=== PATIENT | female | born 1970 | race Caucasian/White ===

== ENCOUNTER 2019-09-12 09:03 | Emergency (ER) | payer SELFPAY ==
[~2019-09-12] VITALS: Ht 177.8 cm; Wt 113.4 kg
[~2019-09-12 09:03] MED LIST: AMLODIPINE BESY10 MG PO; CETIRIZINE HCL10 MG PO; FLUTICASONE PRO16 GM NAS; FUROSEMIDE20 MG PO; HYDROCODON-ACE1 EA14 PO; LISINOPRIL40 MG PO; MECLIZINE HCL25 MG PO; METOPROLOL TART50 MG PO; ONDANSETRON HCL8 MG PO; SERTRALINE HCL50 MG PO; SPIRONOLACTONE25 MG PO; TRAMADOL HCL50 MG PO
== END 2019-09-12 10:09 | disposition home or self-care (01) ==
LOC: ED 09:03
DX: M77.12 Lateral epicondylitis, left elbow (principal); I10 Essential (primary) hypertension; Z79.899 Other long term (current) drug therapy
CPT/HCPCS: 99283

== ENCOUNTER 2024-12-20 10:26 | Emergency (ER) | payer SELFPAY ==
[~2024-12-20] VITALS: Ht 177.8 cm; Wt 114.9 kg
[2024-12-20] MEDS ORDERED: MORPHINE SULFATE 4 MG/ML VIAL IV ONE (12:45)
[2024-12-20] MEDS ORDERED: SODIUM CHLORIDE 0.9% 1,000 ML IV ONE (12:45)
[2024-12-20] MEDS ORDERED: ondansetron HCL 4 MG/2 ML VIAL IV ONE (12:45)
[2024-12-20 12:58] LABS: BASOPHILS 0.4 % (0.1-1.2); EOSINOPHILS 1.3 % (0.7-5.8); HEMATOCRIT 34.5 % (34.1-44.9); HEMOGLOBIN 11.8 g/dL (11.2-15.7); LYMPHOCYTES 18.1 % (19.3-51.7); MCHC 34.2 g/dL (32.2-35.5); MCV 81.9 fL (79.4-94.8); MONOCYTES 4.5 % (4.7-12.5); NEUTROPHILS 75.2 % (34.0-71.1); PLATELET COUNT 199 K/uL (182-369); RBC 4.21 M/uL (3.93-5.22)
[2024-12-20] MEDS ORDERED: SERTRALINE HCL100 MG PO (13:03)
[2024-12-20] MEDS ORDERED: METOPROLOL SUCC50 MG PO (13:03)
[2024-12-20] MEDS ORDERED: VENTOLIN HFA18 GM INH (13:04)
[2024-12-20 13:21] LABS: ALBUMIN 3.5 g/dL (3.4-5.0); ALBUMIN/GLOBULIN RATIO 0.85 (1.1-2.4); ANION GAP 11.4 (7-21); BILIRUBIN, TOTAL 0.6 mg/dL (0.2-1.0); BUN/CREATININE RATIO 28.57 (6.0-28.6); CALCIUM 9.3 mg/dL (8.5-10.1); CREATININE, SERUM 0.84 mg/dL (0.55-1.02); POTASSIUM 4.4 mmol/L (3.5-5.1); PROTEIN, TOTAL 7.6 g/dL (6.4-8.2)
[2024-12-20] MEDS ORDERED: AMOX TR-K CLV1 EAC1 PO (13:34)
[2024-12-20] MEDS ORDERED: ZITHROMAX250 MG PO (13:34)
[2024-12-20] MEDS ORDERED: AMOXICILLIN/CLAVULANATE K 875 MG TAB PO ONE (13:45)
[2024-12-20] MEDS ORDERED: AZITHROMYCIN 250 MG TAB PO ONE (13:45)
[2024-12-20 14:22] VITALS: BP 189/79
== END 2024-12-20 14:22 | disposition home or self-care (01) ==
LOC: ED 10:26
PROVIDERS: Emergency Medicine
DX: J18.9 Pneumonia, unspecified organism (principal); I10 Essential (primary) hypertension; Z88.7 Allergy status to serum and vaccine; Z88.5 Allergy status to narcotic agent
CPT/HCPCS: 36415; 74177; 80053; 83690; 85025; 96375; 99284-25; J2270; J2405; J7030; Q9967